=== PATIENT | female | born 1985 | race Caucasian/White ===

== ENCOUNTER 2019-04-12 10:12 | Emergency (ER) ==
[2019-04-12 10:15] VITALS: BP 123/79; TEMP 97.8; BMI 22.8
--- NOTE | 2019-04-12 10:45 | ED.PDOC ---
General ED Provider: Dr. LORRAINE MAZA Chief Complaint: Abdominal Pain Stated Complaint: Onset earlier this AM while working at [employer] Time Seen by Physician: 10:40 Mode of Arrival: Walk-In Information Source: Patient Exam Limitations: No limitations Primary Care Provider: REN HERNANDEZ Nursing and Triage Documentation Reviewed and Agree: Yes Does patient meet sepsis criteria?: No System Inflammatory Response Syndrome: Not Applicable Sepsis Protocol: For patient's 13 years and over: Temp is 96.8 and below OR 101 and greater Pulse >90 BPM Resp >20/minute Acutely Altered Mental Status Are patient's symptoms suggestive of a new infection, such as: -Pneumonia -Skin, Soft Tissue -Endocarditis -UTI -Bone, Joint Infection -Implantable Device -Acute Abdominal Infection -Wound Infection -Meningitis -Blood Stream Catheter Infection -Unknown Review of Systems - Review Of Systems Constitutional: Reports: No symptoms Eyes: Reports: No symptoms Ears, Nose, Mouth, Throat: Reports: No symptoms Respiratory: Reports: No symptoms Cardiac: Reports: No symptoms GI: Reports: No symptoms : Reports: Frequency, Flank pain, Other (suprapubic pressure and burning) Musculoskeletal: Reports: No symptoms Skin: Reports: No symptoms Neurological: Reports: No symptoms Endocrine: Reports: No symptoms Hematologic/Lymphatic: Reports: No symptoms All Other Systems: Reviewed and Negative Past Medical History - Past Medical History Previously Healthy: Yes Endocrine: Reports: None Cardiovascular: Reports: None Respiratory: Reports: None Hematological: Reports: None Gastrointestinal: Reports: None Genitourinary: Reports: None Neuro/Psych: Reports: None Musculoskeletal: Reports: None Cancer: Reports: None Last Menstrual Period: FIRST OF MARCH - Surgical History General Surgical History: Reports: Unknown - Family History Family History: Reports: Unknown - Social History Smoking Status: Current every day smoker, Heavy tobacco smoker Hx Substance Use: No Alcohol Screening: None Physical Exam - Physical Exam Appearance: Well-appearing, No pain distress, Well-nourished Eyes: ROBERT, EOMI, Conjunctiva clear ENT: Ears normal, Nose normal, Oropharynx normal Respiratory: Airway patent, Breath sounds clear, Breath sounds equal, Respirations nonlabored Cardiovascular: RRR, Pulses normal, No rub, No murmur GI/: Soft, No masses, Bowel sounds normal, No Organomegaly, Tender Musculoskeletal: Normal strength (Bilateral flank tenderness), ROM intact, No edema, No calf tenderness Skin: Warm, Dry, Normal color Neurological: Sensation intact, Motor intact, Reflexes intact, Cranial nerves intact, Alert, Oriented Psychiatric: Affect appropriate, Mood appropriate Critical Care Note - Critical Care Note Total Time (mins): 0 Course - Course Hematology/Chemistry: 04/12/19 10:49 04/12/19 10:49 Orders, Labs, Meds: Lab Review 04/12/19 04/12/19 04/12/19 10:30 10:49 10:49 WBC 7.22 RBC 3.71 L Hgb 12.0 Hct 35.8 L MCV 96.5 MCH 32.3 H MCHC 33.5 RDW Coeff of Jimmy 12.9 Plt Count 337 Immature Gran % (Auto) 0.1 Neut % (Auto) 54.9 Lymph % (Auto) 35.5 [place] % (Auto) 6.4 Eos % (Auto) 2.4 Baso % (Auto) 0.7 Immature Gran # (Auto) 0.0 Neut # (Auto) 4.0 Lymph # (Auto) 2.6 [place] # (Auto) 0.5 Eos # (Auto) 0.2 Baso # (Auto) 0.1 Sodium 138.3 Potassium 3.61 Chloride 102.4 Carbon Dioxide 26.7 Anion Gap 12.81 BUN 8.9 Creatinine 0.59 L Estimated GFR (MDRD) 115.00 BUN/Creatinine Ratio 15.08 Glucose 83.0 Calcium 9.07 Total Bilirubin 0.52 AST 24.8 ALT 16.1 Alkaline Phosphatase 76.4 Total Protein 7.24 Albumin 4.43 Globulin 2.81 Albumin/Globulin Ratio 1.57 Urine Color Yellow Urine Clarity Clear Urine pH 7.0 Ur Specific [place] 1.010 Urine Protein Negative Urine Glucose (UA) Negative Urine Ketones Negative Urine Blood Trace-intact Urine Nitrite Negative Urine Bilirubin Negative Urine Urobilinogen 0.2 Ur Leukocyte Esterase 1+ Urine Microscopic RBC 0-2 Urine Microscopic WBC 10-20 Ur Squamous Epith Cells 2-5 Urine Bacteria Trace Urine Trichomonas Few Orders Category Date Time Status CBC W/ AUTO DIFF Stat LAB 04/12/19 10:49 Completed CMP [COMPREHENSIVE METABOLIC PANEL] Stat LAB 04/12/19 10:49 Completed UA [URINALYSIS C & S IF INDICATED] Stat LAB 04/12/19 10:30 Completed URINE CULTURE Stat LAB 04/12/19 10:30 Received Vital Signs: Temp Pulse Resp BP Pulse Ox 04/12/19 10:12 97.8 F 79 18 123/79 98 Departure - Departure Time of Disposition: 11:30 Disposition: HOME SELF-CARE Discharge Problem: UTI (urinary tract infection), Trichomonal urethritis Instructions: Urinary Tract Infection in Women (ED), Trichomoniasis (ED) Condition: Good Pt referred to PMD for follow-up: Yes IPMP verified?: No Additional Instructions: Take meds as directed Seed Follow up care in 10 days Inform partner so joint treatment can be administered Allergies/Adverse Reactions: Allergies amoxicillin [Amoxicillin] Adverse Reaction (Verified 04/12/19 10:15) Home Medications: Ambulatory Orders Metronidazole [Flagyl] 500 mg PO BID #14 tablet 04/12/19 Nitrofurantoin Monohyd/M-Cryst [Macrobid] 100 mg PO BID #14 capsule 04/12/19 Disposition Discussed With: Patient
== END 2019-04-12 12:14 | disposition home or self-care (01) ==
LOC: ED 10:12
DX: N39.0 Urinary tract infection, site not specified (principal); A59.03 Trichomonal cystitis and urethritis; F17.210 Nicotine dependence, cigarettes, uncomplicated
CPT/HCPCS: 36415; 80053; 81001; 85025; 87086; 99283